=== PATIENT | male | born 2000 | race Hispanic/Latino ===

== ENCOUNTER 2022-10-14 20:51 | Emergency (ER) | payer SELFPAY ==
[2022-10-14] MEDS ORDERED: HYDROcodone/Acetaminophen 10/325 mg Tablet ONE (21:28)
== END 2022-10-14 22:04 | disposition home or self-care (01) ==
LOC: ERS 20:51
DX: S80.01XA Contusion of right knee, initial encounter (principal); Y93.02 Activity, running